=== PATIENT | male | born 1995 | race Caucasian/White ===

== ENCOUNTER 2019-10-14 09:18 | Outpatient (CLI) | payer MEDICAID ==
[~2019-10-14 09:18] MED LIST: ARIP5TAB14 PO; ESCI10TA PO; LAMO100T2 PO
== END 2019-10-14 23:59 | disposition home or self-care (01) ==
LOC: RAD 09:18
PROVIDERS: ATTEND Family Medicine
DX: G40.909 Epilepsy, unspecified, not intractable, without status epilepticus (principal)
CPT/HCPCS: 95819

== ENCOUNTER 2020-05-22 20:02 | Emergency (ER) | payer MEDICAID ==
[~2020-05-22] VITALS: Ht 185.4 cm; Wt 68.1 kg
[2020-05-22 20:13] VITALS: BP 111/58
[2020-05-22] MEDS ORDERED: HYDROcodone/acetaminophen 5mg/325mg tablet PO ONE (20:35)
[2020-05-22] MEDS ORDERED: HYDR-3965 PO (20:42)
== END 2020-05-22 20:51 | disposition home or self-care (01) ==
LOC: ER 20:03
DX: S62.325A Displaced fracture of shaft of fourth metacarpal bone, left hand, initial encounter for closed fracture (principal); F31.9 Bipolar disorder, unspecified; F12.90 Cannabis use, unspecified, uncomplicated; F15.90 Other stimulant use, unspecified, uncomplicated; F17.200 Nicotine dependence, unspecified, uncomplicated; Z86.69 Personal history of other diseases of the nervous system and sense organs; Z72.89 Other problems related to lifestyle; Z88.8 Allergy status to other drugs, medicaments and biological substances; Z79.899 Other long term (current) drug therapy; W22.8XXA Striking against or struck by other objects, initial encounter; Y93.89 Activity, other specified; Y92.89 Other specified places as the place of occurrence of the external cause; Y99.8 Other external cause status
CPT/HCPCS: 29125; 73130; 99283

== ENCOUNTER 2021-08-06 18:17 | Emergency (ER) | payer MEDICAID ==
[~2021-08-06] VITALS: Ht 185.4 cm; Wt 61.4 kg
[2021-08-06] MEDS ORDERED: acetaminophen 325mg tablet PO ONE (21:00)
[2021-08-06 21:29] VITALS: BP 140/60
== END 2021-08-06 21:33 | disposition home or self-care (01) ==
LOC: ER 18:17
DX: Z20.822 Contact with and (suspected) exposure to COVID-19 (principal); R05.9 Cough, unspecified; R50.9 Fever, unspecified; R11.2 Nausea with vomiting, unspecified; F31.9 Bipolar disorder, unspecified; F12.90 Cannabis use, unspecified, uncomplicated; F15.90 Other stimulant use, unspecified, uncomplicated; Z86.69 Personal history of other diseases of the nervous system and sense organs; Z72.89 Other problems related to lifestyle; Z88.8 Allergy status to other drugs, medicaments and biological substances; Z79.899 Other long term (current) drug therapy
CPT/HCPCS: 71045; 87635; 99284; C9803; 99283

== ENCOUNTER 2024-04-26 09:01 | Emergency (ER) | payer MEDICARE, MEDICAID ==
[~2024-04-26] VITALS: Ht 182.9 cm; Wt 65.9 kg
[~2024-04-26 09:01] MED LIST changes: +ARIP5TAB12 PO; -ARIP5TAB14 PO
[2024-04-26 09:15] VITALS: BP 111/85; PULSE 66; RESP 18; TEMP 97.8; O2SAT 98
== END 2024-04-26 10:32 | disposition left against medical advice (07) ==
LOC: ER 09:02
DX: R56.9 Unspecified convulsions (principal); Z76.0 Encounter for issue of repeat prescription; F12.90 Cannabis use, unspecified, uncomplicated; F15.90 Other stimulant use, unspecified, uncomplicated; F31.9 Bipolar disorder, unspecified; Z79.899 Other long term (current) drug therapy; Z88.8 Allergy status to other drugs, medicaments and biological substances; Z72.89 Other problems related to lifestyle
CPT/HCPCS: 99281